=== PATIENT | female | born 2000 | race Caucasian/White ===

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

== ENCOUNTER → 2019-03-01 | Outpatient (REF) | payer OTHER ==
[~2019-03-01] MED LIST changes: +CARA1TAB6 PO; +PROT1TAB2 PO
[2019-03-01 18:08] LABS: HEMATOCRIT 40.7 % (36.0-47.0); MEAN CORPUSCULAR HEMOGLOBIN 28.6 pg (27.0-33.0); MEAN CORPUSCULAR HGB CONC 34.4 g/dl (32.0-36.5); MEAN CORPUSCULAR VOLUME 83.2 fl (80.0-96.0); PLATELET COUNT, AUTOMATED 299 10^3/uL (150-450); RED BLOOD COUNT 4.89 10^6/uL (4.00-5.40); WHITE BLOOD COUNT 5.6 10^3/uL (4.0-10.0)
[2019-03-01 18:25] LABS: ALBUMIN 4.3 GM/DL (3.2-5.2); ALT/SGPT 42 U/L (12-78); BILIRUBIN,TOTAL 0.5 MG/DL (0.2-1.0); BLOOD UREA NITROGEN 6 MG/DL (7-18); CALCIUM LEVEL 9.3 MG/DL (8.5-10.1); CARBON DIOXIDE LEVEL 28 MEQ/L (21-32); CHLORIDE LEVEL 107 MEQ/L (98-107); CREATININE FOR GFR 0.59 MG/DL (0.55-1.30); FREE THYROXINE INDEX 3.9 % (1.3-4.8); GLUCOSE, FASTING 82 MG/DL (70-100); POTASSIUM SERUM 4.3 MEQ/L (3.5-5.1); SODIUM LEVEL 142 MEQ/L (136-145); T UPTAKE 36 % (30-39); THYROXINE (T4) 10.7 UG/DL (6.0-11.6); TOTAL 25(OH) VITAMIN D 31.4 NG/ML (30.0-100.0); TOTAL PROTEIN 7.7 GM/DL (6.4-8.2)
== END ==
LOC: M SFHCCLAY 11:57
PROVIDERS: ATTEND Nurse Practitioner Family
DX: F32.9 Major depressive disorder, single episode, unspecified (principal); L65.9 Nonscarring hair loss, unspecified

== ENCOUNTER → 2019-06-19 | Outpatient (CLI) | payer OTHER ==
[2019-06-21 14:51] LABS: ANTINUCLEAR ANTIBODIES DIRECT Negative (Negative)
== END ==
LOC: M WUC 14:07
PROVIDERS: ATTEND Psychiatry & Neurology Neurology
DX: R51 Headache (principal)

== ENCOUNTER → 2019-08-28 | Outpatient (REF) | payer OTHER ==
[2019-08-31 00:06] LABS: HSV IgM TYPES 1&2 <0.91 Ratio (0.00-0.90); HSV TYPE I IgG SPECIFIC <0.91 index (0.00-0.90); HSV TYPE II IgG SPECIFIC <0.91 index (0.00-0.90)
== END ==
LOC: M LAB REF 16:26
PROVIDERS: ATTEND Obstetrics & Gynecology
DX: A60.04 Herpesviral vulvovaginitis (principal)

== ENCOUNTER → 2020-05-29 | Outpatient (CLI) | payer OTHER ==
[2020-05-29 16:53] LABS: AMPHETAMINES URINE REFLEX NEGATIVE (NEGATIVE); BARBITURATES URINE REFLEX NEGATIVE (NEGATIVE); BENZODIAZEPINES URINE REFLEX NEGATIVE (NEGATIVE); COCAINE METABOLITE URINE REFLE NEGATIVE (NEGATIVE); METHADONE URINE REFLEX NEGATIVE (NEGATIVE); OPIATES URINE REFLEX NEGATIVE (NEGATIVE); PHENCYCLIDINE URINE REFLEX NEGATIVE (NEGATIVE)
[2020-05-29 16:55] LABS: CANNABINOIDS URINE REFLEX PENDING CONFIRMATION (NEGATIVE)
[2020-05-29 16:57] LABS: BASO % 0.5 % (0.0-1.0); EOS % 0.4 % (0.0-3.0); HEMATOCRIT 43.2 % (36.0-47.0); HEMOGLOBIN 14.9 g/dl (12.0-15.5); LYMPH # 1.2 10^3/uL (1.5-5.0); MEAN CORPUSCULAR HEMOGLOBIN 30.1 pg (27.0-33.0); MEAN CORPUSCULAR HGB CONC 34.5 g/dl (32.0-36.5); MEAN CORPUSCULAR VOLUME 87.3 fl (80.0-96.0); MONO # 0.4 10^3/uL (0.0-0.8); MONO % 5.4 % (0.0-5.0); NEUTROPHILS # 6.4 10^3/uL (1.5-8.5); NEUTROPHILS % 78.2 % (36.0-66.0); PLATELET COUNT, AUTOMATED 304 10^3/uL (150-450); RED BLOOD COUNT 4.95 10^6/uL (4.00-5.40); WHITE BLOOD COUNT 8.1 10^3/uL (4.0-10.0)
[2020-05-29 17:38] LABS: ALBUMIN 4.3 GM/DL (3.2-5.2); ALT/SGPT 19 U/L (12-78); BILIRUBIN,TOTAL 0.4 MG/DL (0.2-1.0); BLOOD UREA NITROGEN 6 MG/DL (7-18); CALCIUM LEVEL 9.1 MG/DL (8.5-10.1); CARBON DIOXIDE LEVEL 26 MEQ/L (21-32); CHLORIDE LEVEL 107 MEQ/L (98-107); CREATININE FOR GFR 0.67 MG/DL (0.55-1.30); FREE T4 1.14 NG/DL (0.78-1.33); GLUCOSE, FASTING 105 MG/DL (70-100); IRON (FE) 60 UG/DL (50-170); PERCENT SATURATION 16.8 % (13.2-45.0); POTASSIUM SERUM 4.2 MEQ/L (3.5-5.1); SODIUM LEVEL 141 MEQ/L (136-145); TOTAL IRON BINDING CAPACITY 357 UG/DL (250-450); TOTAL PROTEIN 7.3 GM/DL (6.4-8.2)
[2020-06-02 11:06] LABS: Cannabinoid Positive (.); GC Carboxy THC 50 ng/mL (Cutoff=10)
== END ==
LOC: M WUC 13:31
PROVIDERS: ATTEND Physician Assistant
DX: R55 Syncope and collapse (principal)

== ENCOUNTER → 2020-06-03 | Outpatient (REF) | payer OTHER | LOC: M SFHCCLAY 15:50 | PROVIDERS: ATTEND Nurse Practitioner Family | DX: J02.9 Acute pharyngitis, unspecified (principal) ==

== ENCOUNTER 2020-07-11 16:07 | Inpatient (IN) | payer OTHER ==
[~2020-07-11] VITALS: Ht 167.6 cm; Wt 80.6 kg
[2020-07-11] MEDS ORDERED: VALA1TAB5 PO (16:50)
[2020-07-11 17:22] LABS: HEMATOCRIT 43.6 % (36.0-47.0); MEAN CORPUSCULAR HEMOGLOBIN 29.4 pg (27.0-33.0); MEAN CORPUSCULAR HGB CONC 34.4 g/dl (32.0-36.5); MEAN CORPUSCULAR VOLUME 85.3 fl (80.0-96.0); PLATELET COUNT, AUTOMATED 312 10^3/uL (150-450); RED BLOOD COUNT 5.11 10^6/uL (4.00-5.40); WHITE BLOOD COUNT 9.9 10^3/uL (4.0-10.0)
[2020-07-11 17:49] LABS: HCG, SERUM QUALITATIVE NEGATIVE (NEGATIVE)
[2020-07-11 17:51] LABS: AMPHETAMINES LEVEL URINE NEGATIVE (NEGATIVE); BARBITURATES URINE NEGATIVE (NEGATIVE); BENZODIAZEPINES URINE NEGATIVE (NEGATIVE); CANNABINOIDS URINE NEGATIVE (NEGATIVE); COCAINE METABOLITE URINE NEGATIVE (NEGATIVE); METHADONE URINE NEGATIVE (NEGATIVE); OPIATES URINE NEGATIVE (NEGATIVE); PHENCYCLIDINE URINE NEGATIVE (NEGATIVE)
[2020-07-11 17:59] LABS: ACETAMINOPHEN LEVEL < 2.0 UG/ML (10.0-30.0); ALBUMIN 4.5 GM/DL (3.2-5.2); ALT/SGPT 23 U/L (12-78); BILIRUBIN,DIRECT 0.2 MG/DL (0.0-0.2); BILIRUBIN,TOTAL 0.7 MG/DL (0.2-1.0); BLOOD UREA NITROGEN 9 MG/DL (7-18); CALCIUM LEVEL 9.2 MG/DL (8.5-10.1); CARBON DIOXIDE LEVEL 26 MEQ/L (21-32); CHLORIDE LEVEL 107 MEQ/L (98-107); CREATININE FOR GFR 0.63 MG/DL (0.55-1.30); ETHYL ALCOHOL (ETHANOL) < 0.003 % (0.000-0.010); GLUCOSE, FASTING 86 MG/DL (70-100); SALICYLATE LEVEL < 1.7 MG/DL (5.0-30.0); SODIUM LEVEL 139 MEQ/L (136-145); TOTAL PROTEIN 7.9 GM/DL (6.4-8.2)
--- NOTE | 2020-07-11 18:23 | REPVR ---
PROCEDURE INFORMATION: Exam: CT Head Without Contrast Exam date and time: 07/11/2020 5:57 PM Age: 19 years old Clinical indication: Altered mental status/memory loss; Confusion or disorientation; Additional info: Headache, chronic daily, worsening TECHNIQUE: Imaging protocol: Computed tomography of the head without contrast. Radiation optimization: All CT scans at this facility use at least one of these dose optimization techniques: automated exposure control; mA and/or kV adjustment per patient size (includes targeted exams where dose is matched to clinical indication); or iterative reconstruction. COMPARISON: MRI-Brain without Contrast 05/14/2015 2:53 PM FINDINGS: Brain: The white-portillo differentiation is preserved demonstrating no acute territorial type infarct. No acute intracranial hemorrhage is visualized. No intracranial mass effect. There is no midline shift. 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 Evaluation of this region is limited in therefore a Chiari 1 malformation cannot be excluded. Cerebral ventricles: No ventriculomegaly. Bones/joints: The calvarium demonstrates no evidence for a depressed fracture. Paranasal sinuses: A mucous retention cyst or polyp is identified within the left sphenoid sinus. Mastoid air cells: No mastoid effusion. Soft tissues: Unremarkable. IMPRESSION: 1. No acute intracranial abnormality. 2. 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 A Chiari 1 malformation cannot be excluded. 3. Mild paranasal sinus disease. Electronically signed by: Chu Goldsmith On 07/11/2020 18:24:24 PM
[2020-07-11] MEDS ORDERED: MOM 30ML SUSPENSION UDC PO PRN (19:00)
[2020-07-11] MEDS ORDERED: OLANZapine ORAL DISINTEGRATING TAB 5MG PO PRN (19:00)
[2020-07-11] MEDS ORDERED: MAALOX 30 ML SUSP *UDC PO PRN (19:00)
[2020-07-11] MEDS: ACETAMINOPHEN TAB 650MG DOSE (2X325MG) PO PRN (20:09)
[2020-07-11] MEDS: NICOTINE 21MG/24HR 1 EA TRANSDERMAL TD SCH (20:10)
[2020-07-11 21:31] VITALS: BP 128/83
[2020-07-11] MEDS: QUEtiapine FUMARATE 50 MG TAB PO SCH (22:59)
[2020-07-12 06:27] VITALS: BP 108/61
[2020-07-12] MEDS: NICOTINE 21MG/24HR 1 EA TRANSDERMAL TD SCH (09:00)
[2020-07-12] MEDS: ACETAMINOPHEN TAB 650MG DOSE (2X325MG) PO PRN (09:59)
[2020-07-12] MEDS: ESCITALOPRAM OXALATE 10 MG TAB (LEXAPRO) PO SCH (09:59)
[2020-07-12] MEDS ORDERED: IBUPROFEN 600MG TAB PO PRN (12:15)
--- NOTE | 2020-07-12 14:09 | HPEPDOC ---
[facility] Medical History & Physical Date of Admission Jul 12, 2020 Date of Service: Jul 12, 2020 Attending Physician: Radha Guy MD History and Physical MEDICAL H&P HISTORY OF PRESENT ILLNESS: Agent is a 19-year-old female with past nuchal history of anxiety, depression and genital herpes who presented to [facility] on 07/11/2020 from her primary care provider's office for "a lot of issues with anxiety and depression". The patient was said to happens remaining and crying for long period of time in the office. The patient states she has had issues with headaches and lightheadedness and this is increased anxiety in her. She is said to be following with neuro for those concerns. She states that she has been having mental health issues for years but over the last several weeks holidays it has worsened. She admits to headaches, feeling "fuzzy feelings" in her head, increased depression, paranoia, weight loss over the past several months, poor sleep, increased tearfulness, increased lethargy staying in bed for long periods of time. She states she does not normally have auditory hallucinations but has recently explained visual hallucinations who the patient says she may be thinking about in that moment and then she looks over to her side and they are Advair and person. She states that she "imagines" these people with her. She has a history of depression anxiety with a hospitalization in 2016 for suicidal ideations. She currently denies suicidal ideations or homicidal ideations and has no plan. He is admitted to inpatient mental health for unspecified mood disorder REVIEW OF SYSTEMS: Neg except mentioned above PAST MEDICAL HISTORY: 1. Anxiety 2. Depression 3. Genital herpes 4. Hx of suidical ideation PAST SURGICAL HISTORY: 1. Colonoscopy FAMILY HISTORY: Noncontributory SOCIAL HISTORY: Denies smoking cigarettes but admits to smoking marijuana currently. States she used to drink alcohol very frequently (several times a week when she wsn't smoking marijuana) but has not smoked in one month. Lives with friends locally. Full code ALLERGIES: Please see below. HOME MEDICATIONS: Please see below. PHYSICAL EXAMINATION: VS: Please see below CONSTITUTIONAL: No acute distress, resting comfortably, AAO x 3 EYES: PERRLA, EOM intact HENT, MOUTH: Normocephalic, atraumatic, moist mucous membranes, NECK: SUPPLE, no JVD, no lymphadenopathy, no carotid bruit CV: Regular rate and rhythm, S1S2 normal, no murmurs/rubs/gallops RESPIRATORY: Clear to auscultation bilaterally, no rales/rhonchi/wheezes GI: obese abd, BS positive in 4 quadrants, soft, nontender, nondistended, no rebound or guarding, no organomegaly : Deferred MUSCULOSKELETAL: Normal ROM. No cyanosis, clubbing, swelling, joint deformity, extremity edema INTEGUMENTARY: Intact, no rashes, no lesions, no erythema NEUROLOGIC: Cranial Nerves II-XII are intact, no focal deficits PSYCHIATRIC: Mood and affect are normal LABORATORY DATA: Please see below IMAGING: None ASSESSMENT: 19-year-old female with past nuchal history of anxiety, depression and genital herpes admitted to inpatient mental health for unspecified mood disorder. PLAN: 1. Unspecified mood disorder, hx of depression and anxiety -Plan per psychiatric team 2. Headache, possible stress induced? -No visual or mental status changes -Will add ibuprofen in addition to tylenol -Encouraged to stay hydrated during the day -F/u with neurology 3. Genital herpes -Not currently in flare per patient, exam not performed -Resume home valacyclovir HS DISPOSITION: Thank you kindly for this consult. At this time will sign off on patient but if we are needed to reevaluate again, please do not hesitate to call at any time. Vital Signs Vital Signs Date Time Temp Pulse Resp B/P (MAP) Pulse Ox O2 Delivery O2 Flow Rate FiO2 07/12/20 06:27 97.2 86 12 108/61 (77) 97 Room Air Laboratory Data Labs 24H Laboratory Tests 2 07/11/20 16:58: Nucleated Red Blood Cells % (auto) 0.0, Anion Gap 6L, Calcium Level 9.2, Total Bilirubin 0.7, Direct Bilirubin 0.2, Aspartate Amino Transf (AST/SGOT) 16, Al anine Aminotransferase (ALT/SGPT) 23, Alkaline Phosphatase 69, Total Protein 7.9, Albumin 4.5, Albumin/Globulin Ratio 1.3, Thyroid Stimulating Hormone (TSH) 1.370, Human Chorionic Gonadotropin, Qual NEGATIVE, Salicylates Level < 1.7L, Urine Opiates Screen NEGATIVE, Urine Methadone Screen NEGATIVE, Acetaminophen Level < 2.0L, Urine Barbiturates Screen NEGATIVE, Urine Phencyclidine Screen NEGATIVE, Urine Amphetamines Screen NEGATIVE, Urine Benzodiazepines Screen NEGATIVE, Urine Cocaine Metabolite Screen NEGATIVE, Urine Cannabinoids Screen NEGATIVE, Ethyl Alcohol Level < 0.003 07/11/20 19:29: Coronavirus (COVID-19)(PCR) NEGATIVE, Influenza Type A (RT-PCR) NEGATIVE, Influenza Type B (RT-PCR) NEGATIVE, Respiratory Syncytial Virus (PCR) NEGATIVE CBC/BMP Laboratory Tests 07/11/20 16:58 Home Medications Scheduled Valacyclovir HCl (Valacyclovir) 1,000 Mg Tablet, 1 GRAM PO QHS Allergies Coded Allergies: amphetamine (Verified Allergy, Unknown, 07/11/20) dextroamphetamine (Verified Allergy, Unknown, 07/11/20) fluoxetine (Verified Allergy, Unknown, 07/11/20) sertraline (Verified Allergy, Unknown, 07/11/20) A-FIB/CHADSVASC A-FIB History Current/History of A-Fib/PAF?: No Current PO Anticoag Therapy: No Age/Risk Factor Scoring CHADSVASC: CHADSVASC Response (Comments) Value Age Risk Factor Age < 65 years old 0 Gender Risk Factor Female 1 Hx of CHF No 0 Hx of HTN No 0 Hx of Stroke/TIA/or VTE No 0 Hx of Diabetes No 0 Hx of Vascular Disease No 0 Total 1 Treatment Treatment ordered: NONE, Other Other anticoagulant ordered: none Radha Guy MD Jul 12, 2020 14:09
[2020-07-12] MEDS: ARIPiprazole 2 MG TAB PO SCH (15:33)
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
[2020-07-12] MEDS: QUEtiapine FUMARATE 50 MG TAB PO SCH (20:54)
[2020-07-12] MEDS: valACYclovir HCL 500 MG TAB PO SCH (20:54)
[2020-07-13 06:29] VITALS: BP 116/65
[2020-07-13] MEDS: NICOTINE 21MG/24HR 1 EA TRANSDERMAL TD SCH (08:57)
[2020-07-13] MEDS: ESCITALOPRAM OXALATE 10 MG TAB (LEXAPRO) PO SCH (08:58)
[2020-07-13] MEDS: ARIPiprazole 2 MG TAB PO SCH (08:58)
[2020-07-13] MEDS ORDERED: QUEtiapine FUMARATE 25 MG TAB PO PRN (12:30)
[2020-07-13] MEDS: hydrOXYzine 10 MG TAB PO PRN (15:02)
[2020-07-13 17:39] VITALS: BP 146/81
[2020-07-13] MEDS: valACYclovir HCL 500 MG TAB PO SCH (21:07)
[2020-07-14 06:32] VITALS: BP 112/65
[2020-07-14] MEDS: NICOTINE 21MG/24HR 1 EA TRANSDERMAL TD SCH (09:00)
[2020-07-14] MEDS: ESCITALOPRAM OXALATE 10 MG TAB (LEXAPRO) PO SCH (09:21)
[2020-07-14] MEDS: ARIPiprazole 2 MG TAB PO SCH (09:21)
[2020-07-14] MEDS: hydrOXYzine 10 MG TAB PO PRN (11:23)
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
[2020-07-14 16:00] VITALS: BP 126/77
[2020-07-14] MEDS: valACYclovir HCL 500 MG TAB PO SCH (20:26)
[2020-07-15 06:18] VITALS: BP 136/88
[2020-07-15] MEDS: NICOTINE 21MG/24HR 1 EA TRANSDERMAL TD SCH (09:00)
[2020-07-15] MEDS: ESCITALOPRAM OXALATE 10 MG TAB (LEXAPRO) PO SCH (09:04)
[2020-07-15] MEDS: ARIPiprazole 2 MG TAB PO SCH (09:05)
[2020-07-15] MEDS: hydrOXYzine 10 MG TAB PO PRN (12:40)
[2020-07-15 16:17] VITALS: BP 130/67
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
[2020-07-15] MEDS: valACYclovir HCL 500 MG TAB PO SCH (20:45)
[2020-07-16 06:23] VITALS: BP 129/58
[2020-07-16] MEDS: ARIPiprazole 2 MG TAB PO SCH (08:25)
[2020-07-16] MEDS: ESCITALOPRAM OXALATE 10 MG TAB (LEXAPRO) PO SCH (08:25)
[2020-07-16] MEDS: NICOTINE 21MG/24HR 1 EA TRANSDERMAL TD SCH (08:53)
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
[2020-07-16 16:20] VITALS: BP 126/80
[2020-07-16] MEDS: valACYclovir HCL 500 MG TAB PO SCH (20:56)
[2020-07-17 05:58] VITALS: BP 113/69
[2020-07-17] MEDS: NICOTINE 21MG/24HR 1 EA TRANSDERMAL TD SCH (08:30)
[2020-07-17] MEDS: ESCITALOPRAM OXALATE 10 MG TAB (LEXAPRO) PO SCH (08:31)
[2020-07-17] MEDS: ARIPiprazole 2 MG TAB PO SCH (08:31)
[2020-07-17] MEDS ORDERED: ABIL1TAB13 PO (09:12)
[2020-07-17] MEDS ORDERED: ESCI10TA2 PO (09:12)
[2020-07-17] MEDS ORDERED: HYDR-643 PO (09:12)
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
[2020-07-17 16:22] VITALS: BP 120/73
[2020-07-17] MEDS: hydrOXYzine 10 MG TAB PO PRN (17:26)
[2020-07-17] MEDS: valACYclovir HCL 500 MG TAB PO SCH (20:06)
[2020-07-18 06:29] VITALS: BP 117/67
[2020-07-18] MEDS: NICOTINE 21MG/24HR 1 EA TRANSDERMAL TD SCH (08:34)
[2020-07-18] MEDS: ESCITALOPRAM OXALATE 10 MG TAB (LEXAPRO) PO SCH (08:36)
[2020-07-18] MEDS: ARIPiprazole 2 MG TAB PO SCH (08:36)
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
== END 2020-07-18 10:00 | disposition home or self-care (01) | DRG 885 ==
LOC: M ED 16:07 → M ED INP 18:53 → M PSY 21:28
PROVIDERS: ADMIT Psychiatry & Neurology Psychiatry; ATTEND Psychiatry & Neurology Psychiatry
DX: F31.9 Bipolar disorder, unspecified (principal); F41.1 Generalized anxiety disorder; F43.9 Reaction to severe stress, unspecified; R51.9 Headache, unspecified; A60.09 Herpesviral infection of other urogenital tract; Z62.811 Personal history of psychological abuse in childhood; Z91.410 Personal history of adult physical and sexual abuse; Z79.899 Other long term (current) drug therapy; Z88.8 Allergy status to other drugs, medicaments and biological substances; Z20.828 Contact with and (suspected) exposure to other viral communicable diseases

== ENCOUNTER → 2020-08-25 | Outpatient (CLI) | payer OTHER ==
[~2020-08-25] MED LIST changes: +ABIL1TAB13 PO; +ESCI10TA16 PO; +HYDR-643 PO; +VALA1TAB5 PO
== END ==
LOC: M LABSMTC 14:05
PROVIDERS: ATTEND Pediatrics
DX: Z20.822 Contact with and (suspected) exposure to COVID-19 (principal)

== ENCOUNTER → 2020-11-04 | Outpatient (CLI) | payer OTHER ==
[2020-11-04 16:19] LABS: CHOLESTEROL RISK RATIO 3.951 (<5)
[2020-11-04 16:54] LABS: HEMOGLOBIN A1c 4.9 %
== END ==
LOC: M PLALAB 14:24
PROVIDERS: ATTEND Student in an Organized Health Care Education/Training Program
DX: F60.3 Borderline personality disorder (principal); F31.9 Bipolar disorder, unspecified; F41.1 Generalized anxiety disorder

== ENCOUNTER → 2020-11-04 | Outpatient (REF) | payer OTHER ==
[2020-11-04 15:50] LABS: BASO # 0.1 10^3/uL (0.0-0.2); BASO % 0.8 % (0.0-1.0); EOS # 0.2 10^3/uL (0.0-0.5); EOS % 2.4 % (0.0-3.0); HEMATOCRIT 43.2 % (36.0-47.0); HEMOGLOBIN 14.6 g/dl (12.0-15.5); LYMPH # 1.6 10^3/uL (1.5-5.0); LYMPH % 23.6 % (24.0-44.0); MEAN CORPUSCULAR HEMOGLOBIN 29.6 pg (27.0-33.0); MEAN CORPUSCULAR HGB CONC 33.8 g/dl (32.0-36.5); MEAN CORPUSCULAR VOLUME 87.4 fl (80.0-96.0); MONO # 0.5 10^3/uL (0.0-0.8); MONO % 8.1 % (2.0-8.0); NEUTROPHILS # 4.3 10^3/uL (1.5-8.5); NEUTROPHILS % 64.6 % (36.0-66.0); PLATELET COUNT, AUTOMATED 290 10^3/uL (150-450); RED BLOOD COUNT 4.94 10^6/uL (4.00-5.40); WHITE BLOOD COUNT 6.7 10^3/uL (4.0-10.0)
[2020-11-04 16:25] LABS: ALT/SGPT 37 U/L (12-78); BILIRUBIN,TOTAL 0.3 MG/DL (0.2-1.0); BLOOD UREA NITROGEN 12 MG/DL (7-18); CARBON DIOXIDE LEVEL 29 MEQ/L (21-32); CHLORIDE LEVEL 107 MEQ/L (98-107); CHOLESTEROL LEVEL 160 MG/DL (<200); CHOLESTEROL RISK RATIO 3.809 (<5); GLOMERULAR FILTRATION RATE > 60.0 (>60); GLUCOSE, FASTING 71 MG/DL (70-100); HDL CHOLESTEROL 42 MG/DL (>40); LDL CHOLESTEROL 93 MG/DL (<100); NON-HDL-C 118 MG/DL; POTASSIUM SERUM 4.5 MEQ/L (3.5-5.1); SODIUM LEVEL 139 MEQ/L (136-145); TOTAL PROTEIN 7.1 GM/DL (6.4-8.2); TRIGLYCERIDES LEVEL 123 MG/DL (<150)
[2020-11-04 16:55] LABS: HEMOGLOBIN A1c 5.1 %
[2020-11-04 17:16] LABS: HIV 1&2 SCREEN CENTAUR NEGATIVE (NEGATIVE)
== END ==
LOC: M PLALAB 14:28
PROVIDERS: ATTEND Physician Assistant
DX: Z79.899 Other long term (current) drug therapy (principal); F41.9 Anxiety disorder, unspecified

== ENCOUNTER → 2020-11-10 | Outpatient (CLI) | payer OTHER | LOC: M LABSMTC 14:29 | PROVIDERS: ATTEND Pediatrics | DX: Z20.822 Contact with and (suspected) exposure to COVID-19 (principal) | CPT/HCPCS: C9803; U0003 ==

== ENCOUNTER 2020-11-17 14:32 | Emergency (ER) | payer OTHER ==
[~2020-11-17] VITALS: Ht 167.6 cm; Wt 88.0 kg
[2020-11-17 17:34] LABS: HEMATOCRIT 39.1 % (36.0-47.0); HEMOGLOBIN 13.7 g/dl (12.0-15.5); MEAN CORPUSCULAR HEMOGLOBIN 30.1 pg (27.0-33.0); MEAN CORPUSCULAR VOLUME 85.9 fl (80.0-96.0); PLATELET COUNT, AUTOMATED 246 10^3/uL (150-450); RED BLOOD COUNT 4.55 10^6/uL (4.00-5.40); WHITE BLOOD COUNT 16.4 10^3/uL (4.0-10.0)
[2020-11-17 18:04] LABS: BLOOD UREA NITROGEN 11 MG/DL (7-18); CALCIUM LEVEL 8.6 MG/DL (8.5-10.1); CARBON DIOXIDE LEVEL 21 MEQ/L (21-32); CHLORIDE LEVEL 106 MEQ/L (98-107); CREATININE FOR GFR 0.52 MG/DL (0.55-1.30); GLOMERULAR FILTRATION RATE > 60.0 (>60); GLUCOSE, FASTING 89 MG/DL (70-100); POTASSIUM SERUM 3.9 MEQ/L (3.5-5.1); SODIUM LEVEL 135 MEQ/L (136-145)
[2020-11-17] MEDS ORDERED: ISOVUE-370 76% 100ML VIAL As Ordered ONE (18:23)
[2020-11-17] MEDS ORDERED: MAGIC MOUTHWASH SUSPENSION BTL SS STA (18:54)
[2020-11-17] MEDS ORDERED: NS 1,000 ML IV ONE (18:55)
[2020-11-17] MEDS ORDERED: KETOROLAC 30 MG/ML 1ML VIAL IV ONE (18:55)
--- NOTE | 2020-11-17 18:58 | REPVR ---
PROCEDURE INFORMATION: Exam: CT Neck With Contrast Exam date and time: 11/17/2020 3:00 PM Age: 20 years old Clinical indication: Mass, lump, or swelling in neck; Additional info: R/O tonsilar abcess TECHNIQUE: Imaging protocol: Computed tomography images of the neck with contrast. Radiation optimization: All CT scans at this facility use at least one of these dose optimization techniques: automated exposure control; mA and/or kV adjustment per patient size (includes targeted exams where dose is matched to clinical indication); or iterative reconstruction. Contrast material: ISOVUE 370; Contrast volume: 75 ml; Contrast route: INTRAVENOUS (IV); COMPARISON: No relevant prior studies available. FINDINGS: Nasopharynx: See "Oropharynx" finding. Oropharynx: Bilateral enlargement of the tonsillar pillars consistent with pharyngeal lymphadenopathy. Enlargement of the adenoidal soft tissues consistent with adenoidal lymphadenopathy. Hypopharynx: Unremarkable. Larynx: Unremarkable. Normal epiglottis. Retropharyngeal space: Unremarkable. Submandibular/Parotid glands: Normal. Glands are normal in size. Thyroid: Normal. No enlarged or calcified nodules. Lymph nodes: Bilaterally enlarged jugular digastric lymph nodes measuring 1.8 cm on the right and 2 cm on the left. Trachea: Visualized trachea is unremarkable. Lungs: Unremarkable as visualized. Bones/joints: Unremarkable. No acute fracture. Soft tissues: Unremarkable. No significant soft tissue swelling. IMPRESSION: 1. Bilateral enlargement of the tonsillar pillars consistent with pharyngeal lymphadenopathy. Enlargement of the adenoidal soft tissues consistent with adenoidal lymphadenopathy. 2. Bilaterally enlarged jugular digastric lymph nodes measuring 1.8 cm on the right and 2 cm on the left. Electronically signed by: Michael Arteaga On 11/17/2020 18:59:11 PM
[2020-11-17 19:14] LABS: MONO REFLEX EBV COMP NEGATIVE (NEGATIVE)
[2020-11-17] MEDS ORDERED: dexameTHASONE 20MG/5ML VIAL (J1100 PER 1MG) IV ONE (20:20)
[2020-11-17] MEDS ORDERED: PRED20TA PO (20:20)
[2020-11-17] MEDS ORDERED: MAGICMW SSP (20:20)
[2020-11-17 20:47] VITALS: BP 127/64
--- NOTE | 2020-11-19 09:20 | ED PDOC ---
Post-Departure Follow-Up jessica prasad faxed formal report of ct neck for fu Meir Arechiga MD Nov 19, 2020 09:20
[2020-11-19 16:09] LABS: EBV VIRAL CAPSID AG IgM <36.0 U/mL (0.0-35.9)
== END 2020-11-17 20:49 | disposition home or self-care (01) ==
LOC: M ED 14:32
DX: J03.90 Acute tonsillitis, unspecified (principal); F17.200 Nicotine dependence, unspecified, uncomplicated; Z88.6 Allergy status to analgesic agent; Z88.8 Allergy status to other drugs, medicaments and biological substances
CPT/HCPCS: 70491; 80048; 85027; 86308; 86664; 86665; 87880; 96361; 96374; 96375; 99284; J1100; J1885; Q9967

== ENCOUNTER → 2020-12-25 | Outpatient (REF) | payer OTHER ==
[~2020-12-25] MED LIST changes: +MAGICMW SSP; +PRED20TA PO
== END ==
LOC: M SFHCWAGY 09:40
PROVIDERS: ATTEND Nurse Practitioner Women's Health
DX: Z11.3 Encounter for screening for infections with a predominantly sexual mode of transmission (principal); Z12.4 Encounter for screening for malignant neoplasm of cervix; Z01.419 Encounter for gynecological examination (general) (routine) without abnormal findings; Z77.9 Other contact with and (suspected) exposures hazardous to health

== ENCOUNTER → 2021-02-24 | Outpatient (REF) | payer OTHER | LOC: M LAB REF 21:36 | PROVIDERS: ATTEND Physician Assistant | DX: R11.0 Nausea (principal); R42 Dizziness and giddiness ==

== ENCOUNTER → 2021-04-24 | Outpatient (CLI) | payer OTHER | LOC: M LABSMTC 10:44 | PROVIDERS: ATTEND Pediatrics | DX: Z20.822 Contact with and (suspected) exposure to COVID-19 (principal) | CPT/HCPCS: C9803; U0003 ==

== ENCOUNTER 2021-08-04 13:16 | Inpatient (IN) | payer OTHER ==
[~2021-08-04] VITALS: Ht 167.6 cm; Wt 81.8 kg
[2021-08-04 14:45] LABS: HEMATOCRIT 39.8 % (36.0-47.0); HEMOGLOBIN 13.9 g/dl (12.0-15.5); MEAN CORPUSCULAR HEMOGLOBIN 29.4 pg (27.0-33.0); MEAN CORPUSCULAR HGB CONC 34.9 g/dl (32.0-36.5); MEAN CORPUSCULAR VOLUME 84.3 fl (80.0-96.0); PLATELET COUNT, AUTOMATED 318 10^3/uL (150-450); RED BLOOD COUNT 4.72 10^6/uL (4.00-5.40); WHITE BLOOD COUNT 5.5 10^3/uL (4.0-10.0)
[2021-08-04 14:49] LABS: AMPHETAMINES LEVEL URINE NEGATIVE (NEGATIVE); BARBITURATES URINE NEGATIVE (NEGATIVE); BENZODIAZEPINES URINE NEGATIVE (NEGATIVE); CANNABINOIDS URINE NEGATIVE (NEGATIVE); COCAINE METABOLITE URINE NEGATIVE (NEGATIVE); METHADONE URINE NEGATIVE (NEGATIVE); OPIATES URINE NEGATIVE (NEGATIVE); PHENCYCLIDINE URINE NEGATIVE (NEGATIVE)
[2021-08-04 15:12] LABS: RSV AMPLIFICATION NEGATIVE (NEGATIVE)
[2021-08-04 15:21] LABS: ACETAMINOPHEN LEVEL < 2.0 UG/ML (10.0-30.0); ALBUMIN 3.9 GM/DL (3.2-5.2); ALT/SGPT 24 U/L (12-78); BILIRUBIN,DIRECT 0.1 MG/DL (0.0-0.2); BILIRUBIN,TOTAL 0.2 MG/DL (0.2-1.0); BLOOD UREA NITROGEN 9 MG/DL (7-18); CARBON DIOXIDE LEVEL 28 MEQ/L (21-32); CHLORIDE LEVEL 108 MEQ/L (98-107); CREATININE FOR GFR 0.54 MG/DL (0.55-1.30); ETHYL ALCOHOL (ETHANOL) < 0.003 % (0.000-0.010); GLOMERULAR FILTRATION RATE > 60.0 (>60); GLUCOSE, FASTING 98 MG/DL (70-100); POTASSIUM SERUM 4.1 MEQ/L (3.5-5.1); SALICYLATE LEVEL < 1.7 MG/DL (5.0-30.0); SODIUM LEVEL 140 MEQ/L (136-145); TOTAL PROTEIN 7.2 GM/DL (6.4-8.2)
[2021-08-04] MEDS ORDERED: HYDR-643 PO (16:21)
[2021-08-04] MEDS ORDERED: LORA-622 PO (16:21)
[2021-08-04] MEDS ORDERED: HOME MED LIST COMPLETE! XX SCH (16:25)
[2021-08-04] MEDS ORDERED: ACETAMINOPHEN TAB 650MG DOSE (2X325MG) PO PRN (17:50)
[2021-08-04] MEDS ORDERED: MAALOX 30 ML SUSP *UDC PO PRN (17:50)
[2021-08-04] MEDS ORDERED: LORazepam 1 MG TAB PO PRN (17:50)
[2021-08-04] MEDS ORDERED: traZODone 50 MG TAB PO PRN (17:50)
[2021-08-04] MEDS ORDERED: MOM 30ML SUSPENSION UDC PO PRN (17:50)
[2021-08-04] MEDS: NICOTINE 21MG/24HR 1 EA TRANSDERMAL TD SCH (20:03)
[2021-08-04 20:51] VITALS: BP 143/89
[2021-08-05 06:35] VITALS: BP 119/70
[2021-08-05] MEDS: NICOTINE 21MG/24HR 1 EA TRANSDERMAL TD SCH (08:57)
[2021-08-05] MEDS: BENZONATATE 100MG CAPSULE PO SCH ×3 (09:00→21:53)
--- NOTE | 2021-08-05 11:56 | HPEPDOC ---
General Date of Admission Aug 04, 2021 at 17:47 Date of Service: Aug 05, 2021 Chief Complaint The patient is a 21-year-old female admitted with a reason for visit of Unspecified Depressive Disorder. History of Present Illness 21-year-old female with history of bipolar, generalized anxiety disorder, PTSD, childhood asthma, tonsillar stones, allergies was admitted to inpatient mental health unit for depression with suicidal ideas. Patient reported having dissociative thoughts going on for 2 years she reported on admission that her mood has been very labile with episodes of rage and then impossible after. She has been having daily thoughts to crash her car. She is being examined here today for medical history and physical. Today she also complains of sore throat, cough without any phlegm production, pain in bilateral tonsils. She reports that her symptoms started 3 days ago and she thought it was her allergies so took an allergy pill the first day which helped. She then she took 1 another on the second day but still continued to have pain in her tonsils and sore throat and felt like her upper throat was closing up. Denies any fever or chills he did notice that earlier this morning when she woke up she was wheezing. She tells me that she has not had to use any inhaler since the age of 14 years. Home Medications Scheduled Loratadine (Loratadine) 10 Mg Tablet, 10 MG PO QHS, (Reported) Scheduled PRN Hydroxyzine HCl (Hydroxyzine HCl) 10 Mg Tablet, 10 MG PO DAILYPRN PRN for ANXIETY/AGITATION, (Reported) Allergies Coded Allergies: amphetamine (Verified Allergy, Unknown, 07/11/20) dextroamphetamine (Verified Allergy, Unknown, 07/11/20) fluoxetine (Verified Allergy, Unknown, 07/11/20) sertraline (Verified Allergy, Unknown, 07/11/20) Past Medical History Medical History Asthma as a child Tonsillar stones Allergies genital herpes, Chlamydia Bipolar disorder Generalized anxiety disorder PTSD Surgical History None Family History Significant Family History: Cancer (Aunt had kidney cancer), Heart disease (Father had open heart surgery, aortic valve replacement), Other (Father has mental health problems and polysubstance use disorder history) Social History * Smoker: current smoker A-FIB/CHADSVASC A-FIB History Current/History of A-Fib/PAF?: No Review of Systems Constitutional: Denies: Chills, Fever, Night Sweats Eyes: Denies: Pain, Vision change ENT: Reports: Head Aches, Sore Throat Skin: Denies: Rash, Lesions, Breakdown Pulmonary: Reports: Cough, Other Symptoms (Wheezing); Denies: Dyspnea Cardiovascular: Denies: Chest Pain, Palpitations, Orthopnea, Paroxysmal Noc. Dyspnea, Lt Headedness Gastrointestinal: Denies: Nausea, Vomiting, Abdominal Pain, Diarrhea Genitourinary: Denies: Dysuria, Frequency, Incontinence, Retention Hematologic: Denies: Bruising, Bleeding Excessively Musculoskeletal: Denies: Neck Pain, Back Pain, Joint Pain, Muscle Pain, Spasms Psych: Reports: Depression Physical Examination General Exam: Positive: Alert, No Acute Distress ENT Exam: Positive: Atraumatic, Mucous membr. moist/pink, Other ENT (Bilateral tonsils are mildly enlarged with some erythema. There is some oropharyngeal erythema.) Neck Exam: Positive: Supple, Lymphadenopathy (Left-sided submandibular lymphadenopathy); Negative: JVD, thyromegaly Chest Exam: Positive: Clear to auscultation, Normal air movement Heart Exam: Positive: Rate Normal, Regular Rhythm, Normal S1, Normal S2; Negative: Murmurs, Rubs Abdomen Exam: Positive: Normal bowel sounds, Soft; Negative: Tenderness, Hepatospenomegaly Extremity Exam: Negative: Clubbing, Cyanosis, Edema Neuro Exam: Positive: Normal Gait, Normal Speech, Strength at 5/5 X4 ext, Normal Tone Psych Exam: Positive: Memory Intact, Oriented x 3 Vital Signs Vital Signs Date Time Temp Pulse Resp B/P (MAP) Pulse Ox O2 Delivery O2 Flow Rate FiO2 08/05/21 06:35 97.8 76 16 119/70 (86) 96 Room Air Laboratory Data Labs 24H Laboratory Tests 2 08/04/21 14:00: Nucleated Red Blood Cells % (auto) 0.0, Anion Gap 4L, Glomerular Filtration Rate > 60.0, Calcium Level 9.0, Total Bilirubin 0.2, Direct Bilirubin 0.1, Aspartate Amino Transf (AST/SGOT) 16, Alanine Aminotransferase (ALT/SGPT) 24, Alkaline Phosphatase 56, Total Protein 7.2, Albumin 3.9, Albumin/Globulin Ratio 1.2, Thyroid Stimulating Hormone (TSH) 1.320, Salicylates Level < 1.7L, Urine Opiates Screen NEGATIVE, Urine Methadone Screen NEGATIVE, Acetaminophen Level < 2.0L, Urine Barbiturates Screen NEGATIVE, Urine Phencyclidine Screen NEGATIVE, Urine Amphetamines Screen NEGATIVE, Urine Benzodiazepines Screen NEGATIVE, Urine Cocaine Metabolite Screen NEGATIVE, Urine Cannabinoids Screen NEGATIVE, Ethyl Alcohol Level < 0.003 08/04/21 14:27: Coronavirus (COVID-19)(PCR) NEGATIVE, Influenza Type A (RT-PCR) NEGATIVE, Influenza Type B (RT-PCR) NEGATIVE, Respiratory Syncytial Virus (PCR) NEGATIVE CBC/BMP Laboratory Tests 08/04/21 14:00 Assessment/Plan 21-year-old female with history of bipolar, generalized anxiety disorder, PTSD, childhood asthma, tonsillar stones, allergies was admitted to inpatient mental health unit for depression with suicidal ideas, dissociative thoughts, labile mood. She is being examined here today for medical history and physical. Sore throat/tonsillar pain/URI Flu RSV and Covid are negative We will check for strep throat We will give symptomatic treatment with the cetirizine, topical lozenges, and Tessalon Perls Depression/bipolar/anxiety As per psychiatry Plan / VTE VTE Prophylaxis Ordered?: No (Freely ambulatory) Samina Crook MD Aug 05, 2021 07:45
[2021-08-05] MEDS ORDERED: hydrOXYzine 10 MG TAB PO PRN (12:55)
[2021-08-05] MEDS: CETIRIZINE (ZyrTEC) 10 MG TAB PO SCH (13:05)
[2021-08-05] MEDS: CEPACOL LOZENGE PO PRN ×2 (13:24→22:51)
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
[2021-08-05 17:50] VITALS: BP 146/72
[2021-08-05] MEDS: valACYclovir HCL 500 MG TAB PO SCH (22:37)
[2021-08-06] MEDS: CEPACOL LOZENGE PO PRN ×2 (06:12→21:19)
[2021-08-06 06:20] VITALS: BP 132/78
[2021-08-06] MEDS: ARIPiprazole 2 MG TAB PO SCH (10:18)
[2021-08-06] MEDS: CETIRIZINE (ZyrTEC) 10 MG TAB PO SCH (10:18)
[2021-08-06] MEDS: BENZONATATE 100MG CAPSULE PO SCH ×3 (10:18→21:19)
[2021-08-06] MEDS: NICOTINE 21MG/24HR 1 EA TRANSDERMAL TD SCH (10:19)
--- NOTE | 2021-08-06 15:32 | MHIPN ---
[facility] PROGRESS NOTE DATE: 08/06/2021 VITAL SIGNS: Temperature 97.1, pulse 86, respirations 16, blood pressure 132/78. CURRENT MEDICATIONS: Ativan 1 mg every 6 hours as needed HISTORY OF PRESENT ILLNESS: Patient reports her appetite is good. She did have insomnia last night, however. She hopes to be discharged prior to the '. She now denies having any depressive symptoms. She denies struggling with anger or homicidal thoughts. Patient gives more history on her psychiatric treatment. She claims that her outpatient therapist and psychiatrist have diagnosed her with borderline personality disorder. She admits that she does have hypomanic episodes but rarely has any depressive mood swings. She now denies having any craving for alcohol upon discharge. She is agreeable to a trial again on the Abilify. She was on a low dose previously at 2 mg per day. MENTAL STATUS EXAMINATION: Patient is alert, oriented, and cooperative. Grooming and hygiene are fairly good. Behavior is appropriate. No current signs of impulsivity or dangerousness. She minimizes any depressive symptoms. She reports some racing thoughts, which are mild. She denies any overt manic symptoms. She denies any psychotic symptoms. Patient is not hearing voices. No signs of paranoid or thought disorder. Patient states her mood is more stable. Insight and judgment appear fair. No signs of cognitive deficits. DIAGNOSES: 1. Depressive disorder, not otherwise specified. 2. Borderline personality disorder. 3. Alcohol use disorder. ASSESSMENT: Patient appears to be responding to milieu therapy with improvement in her mood. Patient feels more stable and denies being a danger to self or others. PLAN: Patient to go back on trial of Abilify 2 mg daily. Staff to be working on discharge planning. Patient to be involved in milieu therapy.
[2021-08-06 17:44] VITALS: BP 127/78
[2021-08-06] MEDS: valACYclovir HCL 500 MG TAB PO SCH (21:19)
[2021-08-07 06:28] VITALS: BP 137/74
[2021-08-07] MEDS: ARIPiprazole 2 MG TAB PO SCH (09:00)
[2021-08-07] MEDS: NICOTINE 21MG/24HR 1 EA TRANSDERMAL TD SCH (09:00)
[2021-08-07] MEDS: BENZONATATE 100MG CAPSULE PO SCH (09:10)
[2021-08-07] MEDS: CETIRIZINE (ZyrTEC) 10 MG TAB PO SCH (09:11)
[2021-08-07] MEDS ORDERED: ABIL1TAB13 PO (11:07)
[2021-08-07] MEDS ORDERED: ARIPiprazole 2 MG TAB PO SCH (21:00)
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
== END 2021-08-07 13:00 | disposition home or self-care (01) | DRG 881 ==
LOC: M ED 13:16 → M ED INP 17:47 → M PSY 20:35
PROVIDERS: ADMIT Psychiatry & Neurology Psychiatry; ATTEND Psychiatry & Neurology Psychiatry
DX: F32.A Depression, unspecified (principal); R45.851 Suicidal ideations; F10.20 Alcohol dependence, uncomplicated; R45.850 Homicidal ideations; J02.9 Acute pharyngitis, unspecified; F60.3 Borderline personality disorder; Z20.822 Contact with and (suspected) exposure to COVID-19; Z88.8 Allergy status to other drugs, medicaments and biological substances; Z91.410 Personal history of adult physical and sexual abuse

== ENCOUNTER → 2021-08-28 | Outpatient (CLI) | payer OTHER ==
[~2021-08-28] MED LIST changes: +LORA-622 PO
== END ==
LOC: M LABSMTC 13:13
PROVIDERS: ATTEND Pediatrics
DX: Z20.822 Contact with and (suspected) exposure to COVID-19 (principal)

== ENCOUNTER → 2021-11-13 | Outpatient (CLI) | payer OTHER | LOC: M WUC 13:33 | DX: S93.402A Sprain of unspecified ligament of left ankle, initial encounter (principal); X58.XXXA Exposure to other specified factors, initial encounter; Y92.89 Other specified places as the place of occurrence of the external cause; Y93.89 Activity, other specified; Y99.8 Other external cause status ==

== ENCOUNTER → 2021-12-08 | Outpatient (REF) | payer OTHER | LOC: M LAB REF 16:15 | PROVIDERS: ATTEND Physician Assistant Medical | DX: G89.29 Other chronic pain (principal) ==

== ENCOUNTER 2021-12-10 14:42 | Emergency (ER) | payer OTHER ==
[~2021-12-10] VITALS: Ht 167.6 cm; Wt 81.8 kg
[2021-12-10] MEDS ORDERED: AZIT-12 (14:51)
[2021-12-10] MEDS ORDERED: VALA1TAB5 (14:51)
[2021-12-10 18:14] LABS: BASO # 0.1 10^3/uL (0.0-0.2); BASO % 0.5 % (0.0-1.0); EOS # 0.1 10^3/uL (0.0-0.5); EOS % 0.4 % (0.0-3.0); HEMOGLOBIN 14.4 g/dl (12.0-15.5); LYMPH # 1.4 10^3/uL (1.5-5.0); LYMPH % 9.9 % (24.0-44.0); MEAN CORPUSCULAR HEMOGLOBIN 29.3 pg (27.0-33.0); MEAN CORPUSCULAR HGB CONC 34.3 g/dl (32.0-36.5); MEAN CORPUSCULAR VOLUME 85.4 fl (80.0-96.0); MONO # 0.9 10^3/uL (0.0-0.8); MONO % 5.9 % (2.0-8.0); NEUTROPHILS # 12.1 10^3/uL (1.5-8.5); PLATELET COUNT, AUTOMATED 331 10^3/uL (150-450); RED BLOOD COUNT 4.92 10^6/uL (4.00-5.40); WHITE BLOOD COUNT 14.6 10^3/uL (4.0-10.0)
[2021-12-10] MEDS ORDERED: cefTRIAXone SOD 1 GM in D5W MINI-BAG PLUS 50 ML IV ONE (18:20)
[2021-12-10 18:22] VITALS: BP 119/77
[2021-12-10 18:48] LABS: BLOOD UREA NITROGEN 8 MG/DL (7-18); CALCIUM LEVEL 9.8 MG/DL (8.5-10.1); CARBON DIOXIDE LEVEL 28 MEQ/L (21-32); CHLORIDE LEVEL 107 MEQ/L (98-107); CREATININE FOR GFR 0.61 MG/DL (0.55-1.30); FREE T4 1.06 NG/DL (0.76-1.46); GLOMERULAR FILTRATION RATE > 60.0 (>60); GLUCOSE, FASTING 89 MG/DL (70-100); MAGNESIUM LEVEL 2.2 MG/DL (1.8-2.4); POTASSIUM SERUM 3.9 MEQ/L (3.5-5.1); SODIUM LEVEL 142 MEQ/L (136-145)
[2021-12-10 19:56] LABS: HCG, SERUM QUALITATIVE NEGATIVE (NEGATIVE)
[2021-12-10 20:24] LABS: GC DNA AMPLIFICATION NEGATIVE (NEGATIVE)
[2021-12-10] MEDS ORDERED: NS 1,000 ML IV ONE (20:50)
[2021-12-10] MEDS ORDERED: IBUP-1022 PO (20:55)
[2021-12-10] MEDS ORDERED: ONDA4TAB6 PO (20:55)
[2021-12-10] MEDS ORDERED: ISOVUE-370 76% 100ML VIAL As Ordered ONE (21:07)
== END 2021-12-10 22:44 | disposition home or self-care (01) ==
LOC: M ED 14:42
DX: R10.2 Pelvic and perineal pain (principal); R42 Dizziness and giddiness; Z88.8 Allergy status to other drugs, medicaments and biological substances
CPT/HCPCS: 74177; 76830; 76856; 80048; 81001; 83735; 84439; 84443; 84703; 85025; 87210; 87661; 87810; 87850; 93005; 93976; 96365; 96366; 99284; J0696; Q9967

== ENCOUNTER → 2022-02-10 | Outpatient (REF) | payer OTHER ==
[~2022-02-10] MED LIST changes: +AZIT-12; +ONDA4TAB6 PO; +VALA1TAB5
== END ==
LOC: M SFHCCLAY 11:27
PROVIDERS: ATTEND Nurse Practitioner Family
DX: F41.9 Anxiety disorder, unspecified (principal); R53.83 Other fatigue

== ENCOUNTER → 2023-02-01 | Outpatient (CLI) | payer OTHER | LOC: M WHC 08:34 | PROVIDERS: ATTEND Obstetrics & Gynecology | DX: R10.2 Pelvic and perineal pain (principal) ==

== ENCOUNTER → 2023-04-12 | Outpatient (REF) | payer OTHER ==
[2023-04-12 17:55] LABS: HEMATOCRIT 41.9 % (36.0-47.0); HEMOGLOBIN 14.2 g/dl (12.0-15.5); MEAN CORPUSCULAR HEMOGLOBIN 28.7 pg (27.0-33.0); MEAN CORPUSCULAR HGB CONC 33.9 g/dl (32.0-36.5); MEAN CORPUSCULAR VOLUME 84.8 fl (80.0-96.0); PLATELET COUNT, AUTOMATED 309 10^3/uL (150-450); RED BLOOD COUNT 4.94 10^6/uL (4.00-5.40); WHITE BLOOD COUNT 4.4 10^3/uL (4.0-10.0)
[2023-04-12 18:18] LABS: ALBUMIN 4.1 G/DL (3.2-5.2); ALKALINE PHOSPHATASE 53 U/L (46-116); ALT/SGPT 37 U/L (7.0-40); AST/SGOT 21 U/L (<34); BILIRUBIN,TOTAL 0.5 MG/DL (0.3-1.2); BLOOD UREA NITROGEN 14 MG/DL (9-23); CALCIUM LEVEL 8.8 MG/DL (8.5-10.1); CARBON DIOXIDE LEVEL 27 MMOL/L (20-31); CHLORIDE LEVEL 105 MMOL/L (98-107); GLOMERULAR FILTRATION RATE > 60.0 (>60); GLUCOSE, FASTING 89 MG/DL (60-100); POTASSIUM SERUM 4.3 MMOL/L (3.5-5.1); SODIUM LEVEL 139 MMOL/L (136-145); TOTAL PROTEIN 7.2 G/DL (5.7-8.2)
[2023-04-12 18:19] LABS: FREE T4 1.05 NG/DL (0.89-1.76); THYROID STIMULATING HORMONE 2.167 uIU/ML (0.55-4.78)
== END ==
LOC: M SFHCCLAY 10:42
PROVIDERS: ATTEND Nurse Practitioner Family
DX: F41.9 Anxiety disorder, unspecified (principal); R53.83 Other fatigue

== ENCOUNTER → 2023-07-13 | Outpatient (REF) | payer OTHER ==
[2023-07-13 17:43] LABS: HEMATOCRIT 40.4 % (36.0-47.0); HEMOGLOBIN 13.8 g/dl (12.0-15.5); MEAN CORPUSCULAR HEMOGLOBIN 29.7 pg (27.0-33.0); MEAN CORPUSCULAR HGB CONC 34.2 g/dl (32.0-36.5); MEAN CORPUSCULAR VOLUME 86.9 fl (80.0-96.0); PLATELET COUNT, AUTOMATED 303 10^3/uL (150-450); RED BLOOD COUNT 4.65 10^6/uL (4.00-5.40)
[2023-07-13 18:06] LABS: HCG, SERUM QUANTITATIVE 27.3 MIU/ML (<4.2)
[2023-07-13 18:29] LABS: HCG, SERUM QUALITATIVE POSITIVE (NEGATIVE)
== END ==
LOC: M SFHCCLAY 09:41
PROVIDERS: ATTEND Nurse Practitioner Family
DX: O20.0 Threatened abortion (principal)

== ENCOUNTER → 2023-10-18 | Outpatient (CLI) | payer OTHER | LOC: M PLALAB 08:17 | PROVIDERS: ATTEND Nurse Practitioner Family | DX: Z34.90 Encounter for supervision of normal pregnancy, unspecified, unspecified trimester (principal) ==

== ENCOUNTER → 2023-11-11 | Outpatient (REF) | payer OTHER | LOC: M SFHCCLAY 11:43 | PROVIDERS: ATTEND Physician Assistant | DX: N89.8 Other specified noninflammatory disorders of vagina (principal) ==

== ENCOUNTER → 2023-12-05 | Outpatient (REF) | payer OTHER | LOC: M SFHCWAGY 17:08 | PROVIDERS: ATTEND Nurse Practitioner Family | DX: Z12.4 Encounter for screening for malignant neoplasm of cervix (principal); N73.9 Female pelvic inflammatory disease, unspecified; Z77.9 Other contact with and (suspected) exposures hazardous to health; R87.615 Unsatisfactory cytologic smear of cervix ==

== ENCOUNTER → 2024-01-18 | Outpatient (CLI) | payer OTHER ==
[~2024-01-18] MED LIST changes: +ONDA-282 PO; -ONDA4TAB6 PO
[2024-01-18 13:36] LABS: HEMATOCRIT 39.7 % (36.0-47.0); HEMOGLOBIN 13.7 g/dl (12.0-15.5); MEAN CORPUSCULAR HEMOGLOBIN 29.5 pg (27.0-33.0); MEAN CORPUSCULAR HGB CONC 34.5 g/dl (32.0-36.5); MEAN CORPUSCULAR VOLUME 85.6 fl (80.0-96.0); PLATELET COUNT, AUTOMATED 335 10^3/uL (150-450); RED BLOOD COUNT 4.64 10^6/uL (4.00-5.40); WHITE BLOOD COUNT 9.7 10^3/uL (4.0-10.0)
[2024-01-18 14:22] LABS: HIV 1&2 SCREEN NEGATIVE (NEGATIVE)
[2024-01-18 14:27] LABS: GC DNA AMPLIFICATION NEGATIVE (NEGATIVE)
[2024-01-18 14:30] LABS: HEPATITIS C VIRUS ABY INDEX < 0.02 INDEX (<0.8)
== END ==
LOC: M PLALAB 10:37
PROVIDERS: ATTEND Advanced Practice Midwife
DX: O30.001 Twin pregnancy, unspecified number of placenta and unspecified number of amniotic sacs, first trimester (principal); Z3A.00 Weeks of gestation of pregnancy not specified

== ENCOUNTER → 2024-02-02 | Outpatient (CLI) | payer OTHER | LOC: M RAD 09:02 | PROVIDERS: ATTEND Advanced Practice Midwife | DX: O30.001 Twin pregnancy, unspecified number of placenta and unspecified number of amniotic sacs, first trimester (principal); Z3A.11 11 weeks gestation of pregnancy ==

== ENCOUNTER → 2024-02-07 | Outpatient (CLI) | payer OTHER | LOC: M PLALAB 12:04 | PROVIDERS: ATTEND Obstetrics & Gynecology | DX: Z34.80 Encounter for supervision of other normal pregnancy, unspecified trimester (principal) ==

== ENCOUNTER → 2024-03-12 | Outpatient (REF) | payer OTHER | LOC: M PLALAB 11:28 | PROVIDERS: ATTEND Obstetrics & Gynecology | DX: R39.9 Unspecified symptoms and signs involving the genitourinary system (principal) ==

== ENCOUNTER → 2024-04-05 | Outpatient (REF) | payer OTHER ==
[2024-04-05 18:45] LABS: RSV AMPLIFICATION NEGATIVE (NEGATIVE)
== END ==
LOC: M SFHCCLAY 11:26
PROVIDERS: ATTEND Physician Assistant
DX: R05.1 Acute cough (principal)

== ENCOUNTER → 2024-04-13 | Outpatient (CLI) | payer OTHER ==
[2024-04-13 17:55] LABS: HEMATOCRIT 32.1 % (36.0-47.0); MEAN CORPUSCULAR HEMOGLOBIN 30.2 pg (27.0-33.0); MEAN CORPUSCULAR HGB CONC 34.3 g/dl (32.0-36.5); MEAN CORPUSCULAR VOLUME 88.2 fl (80.0-96.0); PLATELET COUNT, AUTOMATED 288 10^3/uL (150-450); RED BLOOD COUNT 3.64 10^6/uL (4.00-5.40); WHITE BLOOD COUNT 10.7 10^3/uL (4.0-10.0)
[2024-04-13 18:12] LABS: PERCENT SATURATION 15.5 % (13.2-45.0)
== END ==
LOC: M PLALAB 14:51
PROVIDERS: ATTEND Obstetrics & Gynecology
DX: O99.019 Anemia complicating pregnancy, unspecified trimester (principal)

== ENCOUNTER → 2024-05-17 | Outpatient (CLI) | payer OTHER ==
[2024-05-17 14:02] LABS: HEMATOCRIT 33.3 % (36.0-47.0); HEMOGLOBIN 11.6 g/dl (12.0-15.5); MEAN CORPUSCULAR HEMOGLOBIN 30.4 pg (27.0-33.0); MEAN CORPUSCULAR HGB CONC 34.8 g/dl (32.0-36.5); MEAN CORPUSCULAR VOLUME 87.2 fl (80.0-96.0); PLATELET COUNT, AUTOMATED 272 10^3/uL (150-450); RED BLOOD COUNT 3.82 10^6/uL (4.00-5.40); WHITE BLOOD COUNT 11.3 10^3/uL (4.0-10.0)
[2024-05-17 14:23] LABS: GLUCOSE CHALLENGE TEST 1 HOUR 124 MG/DL (LESS THAN 140)
[2024-05-17 14:59] LABS: HIV 1&2 SCREEN NEGATIVE (NEGATIVE)
[2024-05-17 15:06] LABS: HEPATITIS C VIRUS ABY INDEX < 0.02 INDEX (<0.8)
[2024-05-21 13:24] LABS: GC DNA AMPLIFICATION NEGATIVE (NEGATIVE)
== END ==
LOC: M PLALAB 10:54
PROVIDERS: ATTEND Obstetrics & Gynecology
DX: Z34.82 Encounter for supervision of other normal pregnancy, second trimester (principal)

== ENCOUNTER 2024-06-25 15:30 | Outpatient (CLI) | payer OTHER ==
[~2024-06-25] VITALS: Ht 167.6 cm; Wt 115.3 kg
[2024-06-25 16:05] VITALS: BP 134/80
[2024-06-25] MEDS ORDERED: ASPI81CH33 PO (16:11)
[2024-06-25] MEDS ORDERED: VALT1TAB PO (16:11)
[2024-06-25] MEDS ORDERED: PRENTAB9 PO (16:11)
[2024-06-25] MEDS ORDERED: CETI-24 PO (16:11)
[2024-06-25] MEDS ORDERED: ALBU8.5H INH (16:18)
[2024-06-25] MEDS ORDERED: HOME MED LIST COMPLETE! XX SCH (16:20)
[2024-06-25 16:50] LABS: APPEARANCE, URINE HAZY (CLEAR); BACTERIA, URINE AUTO 1+ (NEGATIVE); BILIRUBIN, URINE AUTO NEGATIVE (NEGATIVE); BLOOD, URINE BLOOD NEGATIVE (NEGATIVE); COLOR, URINE YELLOW (YELLOW); GLUCOSE, URINE (UA) AUTO NEGATIVE (NEGATIVE); KETONE, URINE AUTO NEGATIVE (NEGATIVE); LEUKOCYTE ESTERASE, URINE AUTO 2+ (NEGATIVE); MUCUS, URINE SMALL (NEGATIVE); NITRITE, URINE AUTO NEGATIVE (NEGATIVE); PROTEIN, URINE AUTO NEGATIVE (NEGATIVE); RBC, URINE AUTO 1 /HPF (0-3); SPECIFIC GRAVITY URINE AUTO 1.012 (1.002-1.035); SQUAMOUS EPITHELIAL CELL UR AU 14 /HPF (0-6); UROBILINOGEN, URINE AUTO 0.2 mg/dL (0.0-2.0); WBC, URINE AUTO 3 /HPF (0-3)
[2024-06-25 17:29] VITALS: BP 129/73
== END 2024-06-25 17:40 | disposition home or self-care (01) ==
LOC: M LDO 15:30
PROVIDERS: ATTEND Advanced Practice Midwife
DX: O47.03 False labor before 37 completed weeks of gestation, third trimester (principal); O30.043 Twin pregnancy, dichorionic/diamniotic, third trimester; O98.513 Other viral diseases complicating pregnancy, third trimester; O36.0130 Maternal care for anti-D [Rh] antibodies, third trimester, not applicable or unspecified; O32.2XX1 Maternal care for transverse and oblique lie, fetus 1; O32.2XX2 Maternal care for transverse and oblique lie, fetus 2; B00.9 Herpesviral infection, unspecified; Z88.8 Allergy status to other drugs, medicaments and biological substances; Z3A.32 32 weeks gestation of pregnancy
CPT/HCPCS: 59025; 76815; 81001; 87070; 87086; G0463

== ENCOUNTER 2024-06-29 11:46 | Outpatient (CLI) | payer OTHER ==
[~2024-06-29] VITALS: Ht 167.6 cm; Wt 116.1 kg
[~2024-06-29 11:46] MED LIST changes: -VENTAER INH
[2024-06-29 12:16] VITALS: BP 129/79
[2024-06-29] MEDS ORDERED: HOME MED LIST COMPLETE! XX SCH (12:20)
[2024-06-29 12:33] VITALS: BP 127/78
[2024-06-29] MEDS: BETAMETHASONE SOLUSPAN 6MG/ML 5ML VIAL IM SCH (12:44)
[2024-06-29 12:48] VITALS: BP 122/78
[2024-06-29 12:55] LABS: HEMATOCRIT 34.1 % (36.0-47.0); HEMOGLOBIN 11.7 g/dl (12.0-15.5); MEAN CORPUSCULAR HEMOGLOBIN 29.3 pg (27.0-33.0); MEAN CORPUSCULAR HGB CONC 34.3 g/dl (32.0-36.5); MEAN CORPUSCULAR VOLUME 85.5 fl (80.0-96.0); PLATELET COUNT, AUTOMATED 221 10^3/uL (150-450); RED BLOOD COUNT 3.99 10^6/uL (4.00-5.40); WHITE BLOOD COUNT 10.2 10^3/uL (4.0-10.0)
[2024-06-29 13:18] LABS: URIC ACID 2.9 MG/DL (3.1-7.8)
[2024-06-29 13:19] LABS: LDH LACTATE DEHYDROGENASE 143 U/L (120-246)
[2024-06-29 13:21] LABS: ALT/SGPT 15 U/L (7.0-40); AST/SGOT 13 U/L (<34); BILIRUBIN,TOTAL 0.4 MG/DL (0.3-1.2); GLOMERULAR FILTRATION RATE > 60.0 (>60)
[2024-06-29 13:27] LABS: TOTAL PROTEIN,RANDOM URINE 13.8 MG/DL (0.0-14.0)
[2024-06-29 13:32] LABS: CREATININE,RANDOM URINE 35.5 MG/DL
== END 2024-06-29 14:09 | disposition home or self-care (01) ==
LOC: M LDO 11:46
PROVIDERS: ATTEND Advanced Practice Midwife
DX: O26.893 Other specified pregnancy related conditions, third trimester (principal); O30.043 Twin pregnancy, dichorionic/diamniotic, third trimester; O98.313 Other infections with a predominantly sexual mode of transmission complicating pregnancy, third trimester; O26.23 Pregnancy care for patient with recurrent pregnancy loss, third trimester; A60.04 Herpesviral vulvovaginitis; R03.0 Elevated blood-pressure reading, without diagnosis of hypertension; Z88.8 Allergy status to other drugs, medicaments and biological substances; Z3A.33 33 weeks gestation of pregnancy
CPT/HCPCS: 36415; 59025; 82247; 82570; 83615; 84156; 84450; 84460; 84550; 85027; 96372; G0463; J0702

== ENCOUNTER → 2024-06-29 | Outpatient (CLI) | payer OTHER ==
[~2024-06-29] MED LIST changes: +ALBU8.5H INH; +ASPI81CH33 PO; +CETI-24 PO; +PRENTAB9 PO; +VALT1TAB PO; +VENTAER INH
[2024-06-29 13:52] LABS: BASO % 0.4 % (0.0-1.0); EOS # 0.2 10^3/uL (0.0-0.5); EOS % 2.3 % (0.0-3.0); HEMOGLOBIN 12.2 g/dl (12.0-15.5); LYMPH # 1.6 10^3/uL (1.5-5.0); LYMPH % 14.8 % (24.0-44.0); MEAN CORPUSCULAR HEMOGLOBIN 29.5 pg (27.0-33.0); MEAN CORPUSCULAR HGB CONC 33.9 g/dl (32.0-36.5); MONO # 0.7 10^3/uL (0.0-0.8); MONO % 6.3 % (2.0-8.0); NEUTROPHILS % 75.2 % (36.0-66.0); PLATELET COUNT, AUTOMATED 234 10^3/uL (150-450); RED BLOOD COUNT 4.14 10^6/uL (4.00-5.40); WHITE BLOOD COUNT 10.6 10^3/uL (4.0-10.0)
[2024-06-29 14:25] LABS: ALBUMIN 2.6 G/DL (3.2-5.2); ALKALINE PHOSPHATASE 173 U/L (35-104); ALT/SGPT 16 U/L (7.0-40); AST/SGOT 14 U/L (<34); BILIRUBIN,TOTAL 0.3 MG/DL (0.3-1.2); BLOOD UREA NITROGEN 6 MG/DL (9-23); CALCIUM LEVEL 9.4 MG/DL (8.5-10.1); CARBON DIOXIDE LEVEL 20 MMOL/L (20-31); CHLORIDE LEVEL 106 MMOL/L (98-107); CREATININE FOR GFR 0.46 MG/DL (0.55-1.30); GLOMERULAR FILTRATION RATE > 60.0 (>60); GLUCOSE, FASTING 126 MG/DL (60-100); SODIUM LEVEL 139 MMOL/L (136-145); TOTAL PROTEIN 6.3 G/DL (5.7-8.2)
== END ==
LOC: M PLALAB 09:52
DX: R03.0 Elevated blood-pressure reading, without diagnosis of hypertension (principal)

== ENCOUNTER 2024-06-30 13:06 | Outpatient (CLI) | payer OTHER ==
[~2024-06-30] VITALS: Ht 167.6 cm; Wt 115.5 kg
[2024-06-30 13:27] VITALS: BP 117/74
[2024-06-30] MEDS: BETAMETHASONE SOLUSPAN 6MG/ML 5ML VIAL IM ONE (13:42)
== END 2024-06-30 14:00 | disposition home or self-care (01) ==
LOC: M LDO 13:06
PROVIDERS: ATTEND Specialist
DX: O30.043 Twin pregnancy, dichorionic/diamniotic, third trimester (principal); O26.893 Other specified pregnancy related conditions, third trimester; R03.0 Elevated blood-pressure reading, without diagnosis of hypertension; Z3A.33 33 weeks gestation of pregnancy
CPT/HCPCS: 59025; 96372; G0463; J0702

== ENCOUNTER 2024-07-03 12:09 | Outpatient (CLI) | payer OTHER ==
[~2024-07-03] VITALS: Ht 167.6 cm; Wt 116.4 kg
[2024-07-03 12:29] VITALS: BP 132/74
[2024-07-03 14:18] VITALS: BP 130/77
[2024-07-13] MEDS ORDERED: VENTAER INH (08:14)
== END 2024-07-03 15:08 | disposition home or self-care (01) ==
LOC: M LDO 12:09
PROVIDERS: ATTEND Obstetrics & Gynecology
DX: O36.8130 Decreased fetal movements, third trimester, not applicable or unspecified (principal); O30.043 Twin pregnancy, dichorionic/diamniotic, third trimester; O26.23 Pregnancy care for patient with recurrent pregnancy loss, third trimester; O98.513 Other viral diseases complicating pregnancy, third trimester; O36.0130 Maternal care for anti-D [Rh] antibodies, third trimester, not applicable or unspecified; B00.9 Herpesviral infection, unspecified; Z3A.33 33 weeks gestation of pregnancy
CPT/HCPCS: 59025; 76815; 76819; 76820; G0463

== ENCOUNTER 2024-07-13 11:26 | Outpatient (CLI) | payer OTHER ==
[~2024-07-13] VITALS: Ht 167.6 cm; Wt 117.8 kg
[~2024-07-13 11:26] MED LIST changes: +VENTAER INH
[2024-07-13 12:03] VITALS: BP 140/91
[2024-07-13] MEDS ORDERED: HOME MED LIST COMPLETE! XX SCH (12:05)
[2024-07-13 12:36] VITALS: BP 145/88
== END 2024-07-13 13:00 | disposition home or self-care (01) ==
LOC: M LDO 11:26
PROVIDERS: ATTEND Specialist
DX: Z04.1 Encounter for examination and observation following transport accident (principal); O30.043 Twin pregnancy, dichorionic/diamniotic, third trimester; O13.3 Gestational [pregnancy-induced] hypertension without significant proteinuria, third trimester; O99.343 Other mental disorders complicating pregnancy, third trimester; O98.313 Other infections with a predominantly sexual mode of transmission complicating pregnancy, third trimester; A60.04 Herpesviral vulvovaginitis; F41.9 Anxiety disorder, unspecified; F32.9 Major depressive disorder, single episode, unspecified; Z3A.35 35 weeks gestation of pregnancy; Z88.8 Allergy status to other drugs, medicaments and biological substances
CPT/HCPCS: 36415; 59025; 85460; 86850; 86870; 86900; 86901; G0463

== ENCOUNTER → 2024-07-16 | Outpatient (REF) | payer OTHER | LOC: M PLALAB 10:50 | PROVIDERS: ATTEND Obstetrics & Gynecology | DX: Z34.83 Encounter for supervision of other normal pregnancy, third trimester (principal); Z36.85 Encounter for antenatal screening for Streptococcus B ==

== ENCOUNTER 2024-07-17 19:43 | Inpatient (IN) | payer OTHER ==
[~2024-07-17] VITALS: Ht 167.6 cm; Wt 120.6 kg
[2024-07-17] MEDS ORDERED: OXYTOCIN DRIP 30 UNITS in IV 1 EA IV PRN (20:40)
[2024-07-17] MEDS: LACTATED RINGER'S 1000 ML IV STA (20:55)
[2024-07-17] MEDS ORDERED: MORPHINE PRES-FREE INJ 10 MG/10 ML VIAL As Ordered ONE (20:58)
[2024-07-17] MEDS ORDERED: OXYTOCIN 30UNITS IN 0.9% NaCl 500ML IV BAG As Ordered ONE (20:58)
[2024-07-17] MEDS ORDERED: ONDANSETRON 4MG 2ML VIAL As Ordered ONE (21:00)
[2024-07-17] MEDS ORDERED: OXYTOCIN INJ 10UNITS/ML 1ML VIAL As Ordered ONE (21:00)
[2024-07-17] MEDS: AZITHROMYCIN INJ 500 MG, VIAL MATE ADAPTER 1 EACH in NS 250 ML IV ONE (21:00)
[2024-07-17 21:01] LABS: HEMATOCRIT 33.7 % (36.0-47.0); HEMOGLOBIN 11.7 g/dl (12.0-15.5); MEAN CORPUSCULAR HEMOGLOBIN 29.3 pg (27.0-33.0); MEAN CORPUSCULAR HGB CONC 34.7 g/dl (32.0-36.5); MEAN CORPUSCULAR VOLUME 84.5 fl (80.0-96.0); PLATELET COUNT, AUTOMATED 212 10^3/uL (150-450); RED BLOOD COUNT 3.99 10^6/uL (4.00-5.40); WHITE BLOOD COUNT 9.6 10^3/uL (4.0-10.0)
[2024-07-17] MEDS: ceFAZolin SOD 2 GM in IV 1 EA IV ONE (21:01)
[2024-07-17] MEDS: BICITRA 30ML SOLN UDC PO ONE (21:01)
[2024-07-17] MEDS ORDERED: METOCLOPRAMIDE INJ 10MG/2ML VIAL As Ordered ONE (21:19)
[2024-07-17] MEDS ORDERED: KETOROLAC 60MG 2ML VIAL As Ordered ONE (21:53)
[2024-07-17] MEDS ORDERED: ACETAMINOPHEN 1000MG/100ML IV BAG As Ordered ONE (21:53)
[2024-07-17] MEDS ORDERED: PHENYLephrine 500MCG 5ML (100MCG/ML) SYRINGE As Ordered ONE (21:53)
[2024-07-17 21:56] LABS: HEPATITIS C VIRUS ABY INDEX < 0.02 INDEX (<0.8)
[2024-07-17] MEDS: METHYLERGONOVINE MALEATE 0.2MG/ML 1ML VIAL IM PRN (22:30)
[2024-07-17] MEDS: TRANEXAMIC ACID INJection 1,000 MG in NS 100 ML IV PRN (22:38)
[2024-07-17] MEDS: OXYTOCIN DRIP 30 UNITS in IV 1 EA IV SCH (22:45)
[2024-07-17] MEDS ORDERED: METHYLERGONOVINE MALEATE 0.2MG/ML 1ML VIAL IM PRN (22:45)
[2024-07-17] MEDS ORDERED: CALCIUM CARBONATE 500 MG CHEW U/D PO PRN (22:45)
[2024-07-17] MEDS ORDERED: fentaNYL 100 MCG/2 ML INJECTION IV PRN (22:55)
[2024-07-17] MEDS ORDERED: NALOXONE INJ 0.4MG/1ML VIAL IV PRN ×2 (22:55)
[2024-07-17] MEDS ORDERED: HYDROMORPHONE HCL 0.5 MG/ 0.5 ML SYRINGE IV PRN (22:55)
[2024-07-17] MEDS ORDERED: oxyCODONE 5MG TAB PO PRN (22:55)
[2024-07-17] MEDS: SLF 3 ML SYR IV SCH (22:55)
[2024-07-17] MEDS ORDERED: MEPERIDINE 25 MG/ML 1ML VIAL IV PRN (22:55)
[2024-07-17] MEDS ORDERED: **NOTE PATIENT COMMENT** MISC XX SCH (22:55)
[2024-07-17] MEDS: ONDANSETRON 4MG 2ML VIAL IV PRN (23:04)
[2024-07-17 23:45] VITALS: TEMP 97.4
[2024-07-18] VITALS (11 sets, daily range): BP systolic 117–151; BP diastolic 69–89; O2SAT 95–98
[2024-07-18] MEDS: LR 1,000 ML IV SCH (00:48)
[2024-07-18] MEDS: diphenhydrAMINE 50MG/ML VIAL IV PRN (03:50)
[2024-07-18] MEDS: KETOROLAC 30 MG/ML 1ML VIAL IV SCH (03:50)
[2024-07-18 07:06] LABS: HEMOGLOBIN 10.9 g/dl (12.0-15.5); MEAN CORPUSCULAR HEMOGLOBIN 29.4 pg (27.0-33.0); MEAN CORPUSCULAR HGB CONC 35.2 g/dl (32.0-36.5); MEAN CORPUSCULAR VOLUME 83.6 fl (80.0-96.0); PLATELET COUNT, AUTOMATED 191 10^3/uL (150-450); RED BLOOD COUNT 3.71 10^6/uL (4.00-5.40); WHITE BLOOD COUNT 14.6 10^3/uL (4.0-10.0)
[2024-07-18] MEDS: DOCUSATE SODIUM 100MG CAPSULE PO SCH (08:37)
[2024-07-18] MEDS: FERROUS SULFATE 325MG TAB PO SCH (08:37)
[2024-07-18] MEDS: METOCLOPRAMIDE INJ 10MG/2ML VIAL IV PRN (08:38)
[2024-07-18] MEDS: PRENATAL VITAMINS CHEWABLE TABLET PO SCH (08:38)
[2024-07-18] MEDS: ACETAMINOPHEN 325 MG TAB PO PRN (21:24)
[2024-07-18] MEDS: valACYclovir HCL 500 MG TAB PO SCH (21:25)
[2024-07-18] MEDS: IBUPROFEN 800 MG TAB PO SCH (23:30)
[2024-07-19 02:00] VITALS: BP 126/57; O2SAT 97
[2024-07-19] MEDS: SIMETHICONE 80MG CHEW TAB PO PRN (02:14)
[2024-07-19 05:57] VITALS: BP 141/85; O2SAT 96
[2024-07-19] MEDS ORDERED: ACETAMINOPHEN 500 MG TAB PO SCH (06:00)
[2024-07-19] MEDS: MEASLES,MUMPS,RUBELLA VACCINE INJ (MMR-II) SC.IMMUN ONE (09:00)
[2024-07-19] MEDS: ACETAMINOPHEN 500 MG TAB PO PRN (09:22)
[2024-07-19] MEDS: RHOGAM 300MCG (1500IU) INJ IM SCH (09:27)
[2024-07-19 10:00] VITALS: BP 141/84; O2SAT 77; O2SAT 97; O2SAT 98
[2024-07-19] MEDS: oxyCODONE 5MG TAB PO PRN (10:05)
[2024-07-19] MEDS: IBUPROFEN 600MG TAB PO SCH (15:03)
[2024-07-19] MEDS: ACETAMINOPHEN 500 MG TAB PO SCH (17:36)
[2024-07-19] MEDS: MOM 30ML SUSPENSION UDC PO PRN (17:39)
[2024-07-19 18:00] VITALS: BP 145/85; O2SAT 100
[2024-07-19] MEDS ORDERED: IBUPROFEN 600MG TAB PO SCH (18:00)
[2024-07-19] MEDS ORDERED: valACYclovir HCL 500 MG TAB PO SCH (21:00)
[2024-07-20 06:02] VITALS: BP 139/74; O2SAT 97
[2024-07-20 12:17] LABS: HEMATOCRIT 29.2 % (36.0-47.0); HEMOGLOBIN 9.8 g/dl (12.0-15.5); MEAN CORPUSCULAR HEMOGLOBIN 29.2 pg (27.0-33.0); MEAN CORPUSCULAR HGB CONC 33.6 g/dl (32.0-36.5); MEAN CORPUSCULAR VOLUME 86.9 fl (80.0-96.0); PLATELET COUNT, AUTOMATED 233 10^3/uL (150-450); RED BLOOD COUNT 3.36 10^6/uL (4.00-5.40); WHITE BLOOD COUNT 9.3 10^3/uL (4.0-10.0)
[2024-07-20 12:33] LABS: URIC ACID 4.2 MG/DL (3.1-7.8)
[2024-07-20 12:35] LABS: ALT/SGPT 16 U/L (7.0-40); AST/SGOT 30 U/L (<34); BILIRUBIN,TOTAL 0.2 MG/DL (0.3-1.2); CREATININE FOR GFR 0.55 MG/DL (0.55-1.30); GLOMERULAR FILTRATION RATE > 60.0 (>60); LDH LACTATE DEHYDROGENASE 246 U/L (120-246)
[2024-07-20] MEDS: FLUZONE VACCINE TRIVALENT PF(2024-25) 0.5ML SYRINGE IM.IMMUN ONE (15:16)
[2024-07-20] MEDS: oxyCODONE 5MG TAB PO PRN (15:26)
== END 2024-07-20 15:40 | disposition home or self-care (01) | DRG 788 ==
LOC: M LDO 19:43 → M LDI 20:20 → M OBS 07-18 00:29
PROVIDERS: ADMIT Obstetrics & Gynecology; ATTEND Obstetrics & Gynecology
PROC: 10D00Z1 Extraction of Products of Conception, Low, Open Approach (ICD-10-PCS; principal; 2024-07-17 21:35)
DX: O42.013 Preterm premature rupture of membranes, onset of labor within 24 hours of rupture, third trimester (principal); Z3A.35 35 weeks gestation of pregnancy; Z79.82 Long term (current) use of aspirin; Z79.899 Other long term (current) drug therapy; Z88.1 Allergy status to other antibiotic agents; Z88.8 Allergy status to other drugs, medicaments and biological substances; O30.043 Twin pregnancy, dichorionic/diamniotic, third trimester; O32.1XX2 Maternal care for breech presentation, fetus 2; Z37.2 Twins, both liveborn

== ENCOUNTER → 2024-07-17 | Outpatient (REF) | payer OTHER | LOC: M SFHCCLAY 16:14 | PROVIDERS: ATTEND Physician Assistant | DX: Z53.9 Procedure and treatment not carried out, unspecified reason (principal) ==

== ENCOUNTER → 2024-07-17 | Outpatient (REF) | payer OTHER | LOC: M SFHCCLAY 11:22 | PROVIDERS: ATTEND Physician Assistant | DX: J02.9 Acute pharyngitis, unspecified (principal) ==

== ENCOUNTER → 2024-07-23 | Outpatient (REF) | payer OTHER ==
[2024-07-23 13:27] LABS: APPEARANCE, URINE HAZY (CLEAR); BACTERIA, URINE AUTO NEGATIVE (NEGATIVE); BILIRUBIN, URINE AUTO NEGATIVE (NEGATIVE); BLOOD, URINE BLOOD 3+ (NEGATIVE); COLOR, URINE AMBER (YELLOW); GLUCOSE, URINE (UA) AUTO NEGATIVE (NEGATIVE); KETONE, URINE AUTO NEGATIVE (NEGATIVE); LEUKOCYTE ESTERASE, URINE AUTO 2+ (NEGATIVE); MUCUS, URINE SMALL (NEGATIVE); NITRITE, URINE AUTO NEGATIVE (NEGATIVE); PROTEIN, URINE AUTO 2+ mg/dL (NEGATIVE); RBC, URINE AUTO TNTC /HPF (0-3); SPECIFIC GRAVITY URINE AUTO 1.024 (1.002-1.035); SQUAMOUS EPITHELIAL CELL UR AU 5 /HPF (0-6); UROBILINOGEN, URINE AUTO 0.2 mg/dL (0.0-2.0); WBC, URINE AUTO 28 /HPF (0-3)
== END ==
LOC: M SMT 12:46
PROVIDERS: ATTEND Advanced Practice Midwife
DX: R30.0 Dysuria (principal)

== ENCOUNTER → 2024-07-26 | Outpatient (CLI) | payer OTHER ==
[2024-07-26 12:54] LABS: HEMATOCRIT 32.3 % (36.0-47.0); HEMOGLOBIN 10.9 g/dl (12.0-15.5); MEAN CORPUSCULAR HEMOGLOBIN 28.7 pg (27.0-33.0); MEAN CORPUSCULAR HGB CONC 33.7 g/dl (32.0-36.5); PLATELET COUNT, AUTOMATED 438 10^3/uL (150-450); WHITE BLOOD COUNT 8.4 10^3/uL (4.0-10.0)
== END ==
LOC: M PLALAB 11:13
PROVIDERS: ATTEND Physician Assistant Medical
DX: J40 Bronchitis, not specified as acute or chronic (principal)

== ENCOUNTER → 2024-10-03 | Outpatient (REF) | payer OTHER | LOC: M SFHCWAGY 12:53 | PROVIDERS: ATTEND Nurse Practitioner Family | DX: N89.8 Other specified noninflammatory disorders of vagina (principal) | CPT/HCPCS: 87070; G0463 ==

== ENCOUNTER → 2024-10-05 | Outpatient (CLI) | payer OTHER ==
[2024-10-05 18:26] LABS: BASO % 0.5 % (0.0-1.0); EOS # 0.2 10^3/uL (0.0-0.5); HEMATOCRIT 43.2 % (36.0-47.0); LYMPH # 1.9 10^3/uL (1.5-5.0); LYMPH % 25.1 % (24.0-44.0); MEAN CORPUSCULAR HEMOGLOBIN 26.6 pg (27.0-33.0); MEAN CORPUSCULAR HGB CONC 32.4 g/dl (32.0-36.5); MONO # 0.6 10^3/uL (0.0-0.8); MONO % 7.4 % (2.0-8.0); NEUTROPHILS # 4.8 10^3/uL (1.5-8.5); NEUTROPHILS % 64.6 % (36.0-66.0); PLATELET COUNT, AUTOMATED 339 10^3/uL (150-450); RED BLOOD COUNT 5.27 10^6/uL (4.00-5.40); WHITE BLOOD COUNT 7.4 10^3/uL (4.0-10.0)
[2024-10-05 18:40] LABS: ALBUMIN 4.1 G/DL (3.2-5.2); ALKALINE PHOSPHATASE 100 U/L (35-104); ALT/SGPT 60 U/L (7.0-40); AST/SGOT 34 U/L (<34); BILIRUBIN,TOTAL 0.4 MG/DL (0.3-1.2); BLOOD UREA NITROGEN 21 MG/DL (9-23); CALCIUM LEVEL 9.6 MG/DL (8.5-10.1); CARBON DIOXIDE LEVEL 27 MMOL/L (20-31); CHLORIDE LEVEL 106 MMOL/L (98-107); CREATININE FOR GFR 0.58 MG/DL (0.55-1.30); GLOMERULAR FILTRATION RATE > 60.0 (>60); GLUCOSE, FASTING 79 MG/DL (60-100); POTASSIUM SERUM 4.4 MMOL/L (3.5-5.1); SODIUM LEVEL 144 MMOL/L (136-145); TOTAL PROTEIN 7.7 G/DL (5.7-8.2)
== END ==
LOC: M WUC 12:40
PROVIDERS: ATTEND Nurse Practitioner Family
DX: R10.11 Right upper quadrant pain (principal); K59.00 Constipation, unspecified

== ENCOUNTER → 2024-10-05 | Outpatient (REF) | payer OTHER | LOC: M SFHCCLAY 10:40 | PROVIDERS: ATTEND Nurse Practitioner Family | DX: Z53.9 Procedure and treatment not carried out, unspecified reason (principal); R10.11 Right upper quadrant pain; K59.00 Constipation, unspecified ==

== ENCOUNTER → 2025-05-30 | Outpatient (REF) | payer OTHER ==
[~2025-05-30] MED LIST changes: -IBUP-1022 PO; +IBUP600T42 PO; +LORA-1164 PO; -LORA-622 PO
[2025-06-01 14:12] LABS: HPV APTIMA Not Detected (Not Detected)
== END ==
LOC: M SFHCWAGY 17:00
PROVIDERS: ATTEND Nurse Practitioner Family
DX: Z12.4 Encounter for screening for malignant neoplasm of cervix (principal); R87.610 Atypical squamous cells of undetermined significance on cytologic smear of cervix (ASC-US)
CPT/HCPCS: 87070; 87077; 87186; 87624; G0123

== ENCOUNTER → 2025-06-21 | Outpatient (REF) | payer OTHER | LOC: M SFHCCLAY 15:12 | PROVIDERS: ATTEND Physician Assistant | DX: J02.9 Acute pharyngitis, unspecified (principal); Z53.9 Procedure and treatment not carried out, unspecified reason ==

== ENCOUNTER → 2025-06-28 | Outpatient (CLI) | payer OTHER | LOC: M WHC 13:44 | PROVIDERS: ATTEND Nurse Practitioner Family | DX: N94.10 Unspecified dyspareunia (principal); R10.23 Pelvic and perineal pain bilateral ==